=== PATIENT | female | born 1990 | race African-American/Black ===

== ENCOUNTER 2023-07-29 12:04 | Emergency (ER) | payer OTHER ==
[2023-07-29] MEDS ORDERED: ONDANSETRON 4 MG/2 ML VIAL ONE (12:55)
[2023-07-29 12:56] LABS: Specific Gravity 1.007 (1.005-1.030)
[2023-07-29] MEDS ORDERED: KETOROLAC 30 MG/ML INJ ONE (12:56)
[2023-07-29 12:57] LABS: Specific Gravity 1.007 (1.005-1.030); Urine Bilirubin NEGATIVE (Negative); Urine Blood Negative (Negative); Urine Clarity Clear (Clear); Urine Color Colorless (Yellow); Urine Glucose NEGATIVE (Negative); Urine Protein NEGATIVE (Negative); Urine Urobilinogen Normal (Normal); Urine pH 7.5 (5.0-7.0)
--- NOTE | 2023-07-29 13:47 | RAD REPORT ---
EXAM DESCRIPTION: RAD - Thoracic Spine Ap/Lat - 07/29/2023 1:24 pm CLINICAL HISTORY: PAIN Radiculopathy COMPARISON: <Comparisons> FINDINGS: The thoracic spine vertebral body heights and disc spaces are largely maintained. No acute compression fracture. No significant malalignment. IMPRESSION: Negative study.
--- NOTE | 2023-07-29 13:48 | RAD REPORT ---
EXAM DESCRIPTION: RAD - Lumbar Spine 3 Views - 07/29/2023 1:24 pm CLINICAL HISTORY: PAIN Radiculopathy COMPARISON: No comparisons FINDINGS: Vertebral body heights appear maintained. No compression fracture noted. Disc spaces are m aintained. No spondylolysis or spondylolisthesis. Quite subtle levoscoliosis of the lower lumbar spine. IMPRESSION: No acute finding seen. Quite subtle levoscoliosis of the lower lumbar spine.
--- NOTE | 2023-07-29 14:11 | ER ---
Nurse's Notes [facility] Name: Otoniel Reece Age: 32 yrs Sex: Female : 1990 Arrival Date: 07/29/2023 Time: 12:04 Bed 15 Private MD: Diagnosis: Unspecified symptoms and signs involving the musculoskeletal system;Strain of muscle and tendon of back wall of thorax;Strain of muscle, fascia and tendon of lower back Presentation: 07/29 12:09 Chief complaint: EMS states: toned out to home, pt was putting her son down and felt eh3 10/10 pain between her shoulder blades. Pt states she had mild low back pain last night. No Hx of back pain. Coronavirus screen: Vaccine status: Patient reports receiving the 2nd dose of the covid vaccine. Ebola Screen: No symptoms or risks identified at this time. Initial Sepsis Screen: Does the patient meet any 2 criteria? No. Patient's initial sepsis screen is negative. Does the patient have a suspected source of infection? No. Patient's initial sepsis screen is negative. Risk Assessment: Do you want to hurt yourself or someone else? Patient reports no desire to harm self or others. Onset of symptoms was July 29, 2023. 12:09 Method Of Arrival: EMS: [facility] eh3 12:09 Acuity: GABRIELLE 3 eh3 Triage Assessment: 12:14 General: Appears in no apparent distress. uncomfortable, Behavior is calm, cooperative, eh3 appropriate for age. Pain: Complains of pain in thoracic area. Neuro: Level of Consciousness is awake, alert, obeys commands, Oriented to person, place, time, situation. Cardiovascular: Capillary refill < 3 seconds Patient's skin is warm and dry. Respiratory: Airway is patent Respiratory effort is even, unlabored, Respiratory pattern is regular, symmetrical. GI: Abdomen is round non-distended. Derm: Skin is pink, warm \T\ dry. Musculoskeletal: Circulation, motion, and sensation intact. Historical: - Allergies: 12:14 No Known Allergies; eh3 - Immunization history:: Adult Immunizations up to date. - Social history:: Smoking status: unknown. - Family history:: not pertinent. Screenin:16 [facility] ED Fall Risk Assessment (Adult) Score/Fall Risk Level 0 - 2 = Low Risk. Abuse eh3 screen: Denies threats or abuse. Denies injuries from another. Nutritional screening: No deficits noted. Tuberculosis screening: No symptoms or risk factors identified. Assessment: 12:16 Reassessment: No changes from previously documented assessment. See triage assessment. 3 13:00 Reassessment: Patient appears in no apparent distress at this time. Patient and/or eh3 family updated on plan of care and expected duration. Pain level reassessed. Patient is alert, oriented x 3, equal unlabored respirations, skin warm/dry/pink. 14:00 Reassessment: Patient appears in no apparent distress at this time. Patient and/or eh3 family updated on plan of care and expected duration. Pain level reassessed. Patient is alert, oriented x 3, equal unlabored respirations, skin warm/dry/pink. Vital Signs: 12:09 BP 117 / 73; Pulse 76; Resp 18; Temp 98.5(O); Pulse Ox 100% on R/A; Weight 65.77 kg; eh3 Height 5 ft. 4 in. ; Pain 7/10; 13:00 BP 108 / 73; Pulse 68; Resp 18; Pulse Ox 100% on R/A; eh3 14:00 BP 114 / 76; Pulse 58; Resp 16; Pulse Ox 100% on R/A; eh3 12:09 Body Mass Index 24.89 (65.77 kg, 162.56 cm) eh3 12:09 Pain Scale: Adult 3 ED Course: 12:07 Patient arrived in ED. eh3 12:08 Carlos Colbert MD is Attending Physician. [facility] 12:09 Tiffany Balderas, ABDI is Primary Nurse. 3 12:14 Triage completed. eh3 12:14 Arm band placed on. eh3 12:16 Patient has correct armband on for positive identification. Bed in low position. Call 3 light in reach. Side rails up X2. Provided Education on: Use of call blue. Pulse ox on. NIBP on. 13:26 Spine Thoracic Ap/Lat XRAY In Process Unspecified. EDMS 13:26 Lumbar Spine (3 Views) XRAY In Process Unspecified. EDMS 14:10 Ludwig Torrez MD is Referral Physician. [facility] 14:28 No provider procedures requiring assistance completed. IV discontinued, intact, eh3 bleeding controlled, No redness/swelling at site. Pressure dressing applied. Administered Medications: 12:45 Drug: NS 0.9% IV 1000 ml IV at 1 bolus Per protocol; 1000 mL bolus Route: IV; Rate: 1 eh3 bolus; Site: left antecubital; 14:30 Follow up: IV Status: Completed infusion; IV Intake: 1000ml eh3 12:45 Drug: Ketorolac IVP 30 mg IVP once Route: IVP; Site: left antecubital; eh3 14:00 Follow up: Response: No adverse reaction eh3 12:45 Drug: Ondansetron IVP 4 mg IVP once; over 2 minutes Route: IVP; Site: left antecubital; eh3 14:00 Follow up: Response: No adverse reaction eh3 14:20 Drug: Diazepam PO 5 mg PO once Route: PO; eh3 14:35 Follow up: Response: No adverse reaction eh3 14:20 Drug: [place] PO 10 mg-325 mg 1 tabs PO once Route: PO; eh3 14:35 Follow up: Response: No adverse reaction eh3 Medication: 14:28 VIS not applicable for this client. eh3 Intake: 14:30 IV: 1000ml; Total: 1000ml. eh3 Outcome: 14:11 Discharge ordered by MD. estrella 14:28 Discharged to home ambulatory, with significant other, eh3 14:28 Condition: stable 14:28 Discharge instructions given to patient, Instructed on discharge instructions, follow up and referral plans. no drinking with medication, no driving heavy equipment, medication usage, Demonstrated understanding of instructions, follow-up care, medications, Prescriptions given X 2, 14:34 Patient left the ED. eh3 Signatures: Dispatcher [employer] EDCarlos Alvarez MD MD cha Hall, Erin, RN RN eh3
--- NOTE | 2023-07-29 14:11 | EDPHYS ---
Physician Documentation [facility] Name: Otoniel Reece Age: 32 yrs Sex: Female : 1990 Arrival Date: 07/29/2023 Time: 12:04 Bed 15 Private MD: ED Physician Carlos Colbert HPI: 07/29 14:05 This 32 yrs old Black Female presents to ER via EMS with complaints of Back Injury. sameer 14:05 The patient presents with pain that is acute, and decreased range of motion, and sameer tenderness. The symptoms are located in the left trapezius, right trapezius, left scapular area, right scapular area and thoracic area. Onset: The symptoms/episode began/occurred 2 day(s) ago. The pain does not radiate. Associated signs and symptoms: The patient has no apparent associated signs or symptoms. The problem was sustained when bending over, when lifting baby, furniture, from twisting. Modifying factors: The patient symptoms are alleviated by remaining still, the patient symptoms are aggravated by any movement, bending, lifting, movement, standing, walking. Severity of symptoms: At their worst the symptoms were mild, in the emergency department the symptoms are unchanged. The patient has experienced similar episodes in the past, a few times. Historical: - Allergies: 12:14 No Known Allergies; eh3 - Immunization history:: Adult Immunizations up to date. - Social history:: Smoking status: unknown. - Family history:: not pertinent. ROS: 14:05 Constitutional: Negative for fever, chills, and weight loss, Eyes: Negative for injury, sameer pain, redness, and discharge, ENT: Negative for injury, pain, and discharge, Neck: Negative for injury, pain, and swelling, Cardiovascular: Negative for chest pain, palpitations, and edema, Respiratory: Negative for shortness of breath, cough, wheezing, and pleuritic chest pain, Abdomen/GI: Negative for abdominal pain, nausea, vomiting, diarrhea, and constipation, : Negative for injury, bleeding, discharge, and swelling, MS/Extremity: Negative for injury and deformity, Skin: Negative for injury, rash, and discoloration, Neuro: Negative for headache, weakness, numbness, tingling, and seizure, Psych: Negative for depression, anxiety, suicide ideation, homicidal ideation, and hallucinations, Allergy/Immunology: Negative for hives, rash, and allergies, Endocrine: Negative for neck swelling, polydipsia, polyuria, polyphagia, and marked weight changes, Hematologic/Lymphatic: Negative for swollen nodes, abnormal bleeding, and unusual bruising, 14:05 Back: Positive for decreased range of motion, pain at rest, pain with movement, of the left scapular area, right scapular area, left subscapular area, right subscapular area and thoracic area, Exam: 14:05 Constitutional: This is a well developed, well nourished patient who is awake, alert, sameer and in no acute distress. Head/Face: Normocephalic, atraumatic. Eyes: Pupils equal round and reactive to light, extra-ocular motions intact. Lids and lashes normal. Conjunctiva and sclera are non-icteric and not injected. Cornea within normal limits. Periorbital areas with no swelling, redness, or edema. ENT: Nares patent. No nasal discharge, no septal abnormalities noted. Tympanic membranes are normal and external auditory canals are clear. Oropharynx with no redness, swelling, or masses, exudates, or evidence of obstruction, uvula midline. Mucous membranes moist. Neck: Trachea midline, no thyromegaly or masses palpated, and no cervical lymphadenopathy. Supple, full range of motion without nuchal rigidity, or vertebral point tenderness. No Meningismus. Chest/axilla: Normal chest wall appearance and motion. Nontender with no deformity. No lesions are appreciated. Cardiovascular: Regular rate and rhythm with a normal S1 and S2. No gallops, murmurs, or rubs. Normal PMI, no JVD. No pulse deficits. Respiratory: Lungs have equal breath sounds bilaterally, clear to auscultation and percussion. No rales, rhonchi or wheezes noted. No increased work of breathing, no retractions or nasal flaring. Abdomen/GI: Soft, non-tender, with normal bowel sounds. No distension or tympany. No guarding or rebound. No evidence of tenderness throughout. Skin: Warm, dry with normal turgor. Normal color with no rashes, no lesions, and no evidence of cellulitis. Neuro: Awake and alert, GCS 15, oriented to person, place, time, and situation. Cranial nerves II-XII grossly intact. Motor strength 5/5 in all extremities. Sensory grossly intact. Cerebellar exam normal. Normal gait. Psych: Awake, alert, with orientation to person, place and time. Behavior, mood, and affect are within normal limits. 14:05 Back: pain, that is moderate, ROM is painful, with all movement, with rotation to the right, with rotation to the left, with flexion, with extension, normal spinal alignment noted, CVA tenderness, is absent, muscle spasm, is appreciated in the left trapezius, right trapezius, left scapular area, right scapular area and thoracic area, Vital Signs: 12:09 BP 117 / 73; Pulse 76; Resp 18; Temp 98.5(O); Pulse Ox 100% on R/A; Weight 65.77 kg; eh3 Height 5 ft. 4 in. ; Pain 7/10; 13:00 BP 108 / 73; Pulse 68; Resp 18; Pulse Ox 100% on R/A; eh3 14:00 BP 114 / 76; Pulse 58; Resp 16; Pulse Ox 100% on R/A; eh3 12:09 Body Mass Index 24.89 (65.77 kg, 162.56 cm) [facility] 12:09 Pain Scale: Adult 3 MDM: 12:08 Patient medically screened. [facility] 14:08 Differential diagnosis: chronic back pain, Fatigue Fracture Ligament Injury sameer Pyelonephritis ruptured disc, Scoliosis sprain, Ureterolithiasis. Data reviewed: vital signs, nurses notes, lab test result(s), radiologic studies, plain films. Consideration of Admission/Observation Escalation of care including admission/observation considered. I considered the following discharge prescriptions or medication management in the emergency department Medications were administered in the Emergency Department. See MAR. Independent interpretation of the following test(s) in the Emergency Department X-Ray: My interpretation is no fx , normal alignment. Test considered but Not performed: Labs: no labs. Historians other than the Patient: Spouse/Significant Other: . Care significantly affected by the following chronic conditions: no history. Counseling: I had a detailed discussion with the patient and/or guardian regarding the historical points, exam findings, and any diagnostic results supporting the discharge/admit diagnosis, lab results, radiology results, the need for outpatient follow up, for definitive care, a family practitioner, a orthopedic surgeon. 07/29 12:24 Order name: Urinalysis w/ reflexes; Complete Time: 13:48 [facility] 07/29 12:24 Order name: PREGU; Complete Time: 13:48 [facility] 07/29 12:24 Order name: Spine Thoracic Ap/Lat XRAY [facility] 07/29 12:24 Order name: Lumbar Spine (3 Views) XRAY [facility] Administered Medications: 12:45 Drug: NS 0.9% IV 1000 ml IV at 1 bolus Per protocol; 1000 mL bolus Route: IV; Rate: 1 eh3 bolus; Site: left antecubital; 14:30 Follow up: IV Status: Completed infusion; IV Intake: 1000ml eh3 12:45 Drug: Ketorolac IVP 30 mg IVP once Route: IVP; Site: left antecubital; eh3 14:00 Follow up: Response: No adverse reaction eh3 12:45 Drug: Ondansetron IVP 4 mg IVP once; over 2 minutes Route: IVP; Site: left antecubital; eh3 14:00 Follow up: Response: No adverse reaction eh3 14:20 Drug: Diazepam PO 5 mg PO once Route: PO; eh3 14:35 Follow up: Response: No adverse reaction eh3 14:20 Drug: [place] PO 10 mg-325 mg 1 tabs PO once Route: PO; eh3 14:35 Follow up: Response: No adverse reaction eh3 Disposition Summary: 07/29/23 14:11 Discharge Ordered Notes: Location: Home sameer Problem: new sameer Symptoms: have improved sameer Condition: Stable sameer Diagnosis - Unspecified symptoms and signs involving the musculoskeletal system sameer - Strain of muscle and tendon of back wall of thorax sameer - Strain of muscle, fascia and tendon of lower back sameer Followup: sameer - With: Private Physician - When: 2 - 3 days - Reason: Recheck today's complaints, Continuance of care, Re-evaluation by your physician Followup: sameer - With: Ludwig Torrez MD - When: 2 - 3 days - Reason: Recheck today's complaints, Re-evaluation by your physician Discharge Instructions: - Discharge Summary Sheet sameer - Acute Back Pain, Adult sameer - Musculoskeletal Pain sameer - Back Exercises sameer Forms: - Medication Reconciliation Form sameer - Thank You Letter sameer - Antibiotic Education sameer - Prescription Opioid Use sameer - Patient Portal Instructions sameer - Leadership Thank You Letter sameer - Family Work Release ll1 Prescriptions: - Diclofenac Sodium 75 mg Oral tablet, delayed release (enteric coated) - take 1 tablet ORAL route 2 times per day; 20 tablet; Refills: 0, Product sameer Selection Permitted - Cyclobenzaprine 5 mg Oral Tablet - take 1 tablet ORAL route 3 times per day As needed; 15 tablet; Refills: 0, [facility] Product Selection Permitted Signatures: Dispatcher [employer] Carlos Oseguera, Tiffany Pathak MD, cha RN RN eh3
[2023-07-29] MEDS ORDERED: DIAZEPAM 5 MG TABLET ONE (14:25)
[2023-07-29] MEDS ORDERED: HYDROCODONE/APAP 10/325 TAB ONE (14:25)
[2023-07-29 14:38] VITALS: TEMP 98.5; O2SAT 100
[2023-07-29 14:40] VITALS: BP 114/76
== END 2023-07-29 14:34 | disposition home or self-care (01) ==
LOC: ER 12:04
DX: S29.012A Strain of muscle and tendon of back wall of thorax, initial encounter (principal); S39.012A Strain of muscle, fascia and tendon of lower back, initial encounter; R29.91 Unspecified symptoms and signs involving the musculoskeletal system
CPT/HCPCS: 96361; 81025; 81003; 72100; 72070; 96375; 96374; 99284; J2405